=== PATIENT | male | born 1975 | race Caucasian/White ===

== ENCOUNTER 2017-12-24 09:34 | Emergency (ER) | payer OTHER ==
[2017-12-24 10:42] LABS: Protime INR 0.98
[2017-12-24 10:45] LABS: Urine Blood NEGATIVE (NEG); Urine Glucose NEGATIVE (NEG); Urine Protein 1+ (NEG)
[2017-12-24 10:53] LABS: Potassium 3.8 mEq/L (3.6-5.0)
[2017-12-24 10:59] LABS: Albumin 4.6 g/dL (3.2-5.5); Bilirubin Direct 0.1 mg/dL (0-0.2); Magnesium 2.2 mg/dL (1.8-2.5)
[2017-12-24 11:03] LABS: Absolute Lymphocytes (CBC) 1.1 K/uL (0.7-4.9); Absolute Monocytes 0.6 K/uL (0.1-1.3); Absolute Neutrophil 5.3 K/uL (1.8-8.0); Basophils % 0.3 % (0-1.3); Eosinophils % 1.1 % (0-4.4); Hematocrit 45.3 % (39.6-49.0); Lymphocytes % 14.9 % (15.3-44.8); MCH 27.6 pg (27.0-35.0); MCV 83.3 fL (80-100); MPV 8.2 fL (7.6-11.3); Monocytes % 8.6 % (3.3-12.3); RBC Red Blood Cell Count 5.44 M/uL (4.33-5.43)
--- NOTE | 2017-12-24 11:50 | RAD REPORT ---
EXAM DESCRIPTION: [place] Single View12/24/2017 10:22 am CLINICAL HISTORY: Chest pain COMPARISON: none FINDINGS: The lungs appear clear of acute infiltrate. The heart is borderline enlarged IMPRESSION: No acute abnormalities displayed
--- NOTE | 2017-12-24 12:09 | ER ---
Nurse's Notes [facility] Name: Aric Luevano Age: 42 yrs Sex: Male : 1975 Arrival Date: 12/24/2017 Time: 09:38 Bed 13 Private MD: Diagnosis: Paresthesia of skin Presentation: 12/24 09:41 Presenting complaint: Patient states: i have some weakness and numbness and tingling on hj my arms and legs since Tuesday, denies nausea and vomiting; reports headache;. Transition of care: patient was not received from another setting of care. Onset of symptoms was December 21, 2017. Care prior to arrival: None. 09:41 Method Of Arrival: Ambulatory 09:41 Acuity: TRINIDAD 3 hj Triage Assessment: :44 General: Appears in no apparent distress. uncomfortable, Behavior is cooperative, hj appropriate for age, anxious. Pain: Complains of pain in head. Neuro: Reports headache occipital area. Historical: - Allergies: :44 No Known Allergies; hj - Home Meds: :44 testosterone [Active]; hj - PMHx: :44 hypogonadism; hj - PSHx: :44 right meniscus repaired; Vasectomy; hj - Immunization history:: Adult Immunizations up to date, Last tetanus immunization: unknown, Flu vaccine is not up to date. - Social history:: Patient uses alcohol, Patient/guardian denies using street drugs, IV drugs, caffeine, The patient lives with family, Smoking status: Patient/guardian denies using tobacco, never smoked. Screenin:00 Abuse screen: Denies threats or abuse. Denies injuries from another. Nutritional jtb screening: No deficits noted. Tuberculosis screening: No symptoms or risk factors identified. Fall Risk None identified. Assessment: 10:00 General: Appears in no apparent distress. comfortable, Behavior is calm, cooperative, jtb appropriate for age, Pt denies pain but reports a pressure under the left breast that is intermittent. . Pain: Denies pain. Neuro: Level of Consciousness is awake, alert, obeys commands, Oriented to person, place, time, situation, Reports numbness in right hand, left hand, right foot and left foot paresthesias in right hand, left hand, right foot and left foot. Cardiovascular: Patient's skin is warm and dry. Respiratory: Airway is patent Respiratory effort is even, unlabored, Respiratory pattern is regular, symmetrical, Denies shortness of breath. GI: No signs and/or symptoms were reported involving the gastrointestinal system. : No signs and/or symptoms were reported regarding the genitourinary system. EENT: No signs and/or symptoms were reported regarding the EENT system. Derm: Skin is intact, Skin is pink, warm \T\ dry. Musculoskeletal: Reports numbness in right hand, left hand, right foot and left foot. 10:46 Reassessment: Patient and/or family updated on plan of care and expected duration. Pain jtb level reassessed. Patient is alert, oriented x 3, equal unlabored respirations, skin warm/dry/pink. Patient denies pain at this time. 11:45 Reassessment: Patient appears in no apparent distress at this time. Patient and/or jtb family updated on plan of care and expected duration. Pain level reassessed. Patient is alert, oriented x 3, equal unlabored respirations, skin warm/dry/pink. Patient denies pain at this time. Vital Signs: 09:45 BP 147 / 90; Pulse 72; Resp 16; Temp 98.6(O); Pulse Ox 98% on R/A; Weight 104.33 kg; ss Height 5 ft. 9 in. (175.26 cm); Pain 2/10; 10:19 BP 133 / 88; Pulse 69; Resp 16 S; Pulse Ox 97% on R/A; jl7 10:46 BP 133 / 87; Pulse 73; Resp 20 S; Pulse Ox 97% ; Pain 0/10; jtb 11:46 BP 138 / 80; Pulse 72; Resp 16 S; Pulse Ox 98% on R/A; Pain 0/10; jtb 09:45 Body Mass Index 33.96 (104.33 kg, 175.26 cm) ED Course: 09:38 Patient arrived in ED. mr 09:43 Triage completed. hj 09:45 Arm band placed on right wrist. hj 09:47 Abigail Jama RN is Primary Nurse. jl7 09:49 Kodak Pace MD is Attending Physician. ma2 10:00 Patient has correct armband on for positive identification. Placed in gown. Bed in low jtb position. Call light in reach. Side rails up X 1. electronic device monitor on. Pulse ox on. NIBP on. 10:00 Initial lab(s) drawn, by me, sent to lab. Inserted saline lock: 20 gauge in right jtb forearm, using aseptic technique. Blood collected. 10:18 X-ray completed. Portable x-ray completed in exam room. Patient tolerated procedure la2 well. 10:19 Urine collected:. EKG done, by ED staff, reviewed by Kodak Pace MD. [facility] 12:22 No provider procedures requiring assistance completed. IV discontinued, intact, jtb bleeding controlled. Administered Medications: No medications were administered Outcome: 12:08 Discharge ordered by . [email or web address] 12:22 Discharged to home ambulatory. jtb 12:22 Condition: stable 12:22 Discharge instructions given to patient, Instructed on discharge instructions, follow up and referral plans. medication usage, Demonstrated understanding of instructions, follow-up care, medications, Prescriptions given X 1. 12:22 Attestation : I agree with everything documented by Fili Cook, Student Nurse. 7 12:23 Patient left the ED. jtb Signatures: Juanis Stubbs Shelby, RN RN Abdirashid Ellis, RN Juanis Gonzalez [facility] Abigail Jama RN RN 7 Amanda Resendiz [facility] Kodak Pace MD MD vtFili Flores
--- NOTE | 2017-12-24 12:10 | EDPHYS ---
Physician Documentation [facility] Name: Aric Luevano Age: 42 yrs Sex: Male : 1975 Arrival Date: 12/24/2017 Time: 09:38 Bed 13 Private MD: ED Physician Kodak Pace HPI: 12/24 10:12 This 42 yrs old Male presents to ER via Ambulatory with complaints of ma2 Numbness Of Arm, Weakness, Dizziness. 10:12 The complaints affect the right hand. Onset: The symptoms/episode began/occurred ma2 gradually, 4 day(s) ago. Treatment prior to arrival includes: no previous treatment. Associated signs and symptoms: Pertinent negatives: decreased range of motion, deformity, erythema, fever, swelling, tingling, warmth, weakness. Severity of symptoms: At their worst the symptoms were moderate. The patient has experienced similar episodes in the past. Historical: - Allergies: 09:44 No Known Allergies; hj - Home Meds: 09:44 testosterone [Active]; hj - PMHx: :44 hypogonadism; hj - PSHx: 09:44 right meniscus repaired; Vasectomy; hj - Immunization history:: Adult Immunizations up to date, Last tetanus immunization: unknown, Flu vaccine is not up to date. - Social history:: Patient uses alcohol, Patient/guardian denies using street drugs, IV drugs, caffeine, The patient lives with family, Smoking status: Patient/guardian denies using tobacco, never smoked. ROS: 10:12 Constitutional: Negative for fever, chills, and weight loss, Eyes: Negative for injury, ma2 pain, redness, and discharge, ENT: Negative for injury, pain, and discharge, Neck: Negative for injury, pain, and swelling, Cardiovascular: Negative for chest pain, palpitations, and edema, Respiratory: Negative for shortness of breath, cough, wheezing, and pleuritic chest pain, Abdomen/GI: Negative for abdominal pain, nausea, diarrhea, and constipation, Back: Negative for injury and pain, : Negative for injury, bleeding, discharge, and swelling, Skin: Negative for injury, rash, and discoloration, Neuro: Negative for headache, weakness, numbness, tingling, and seizure, Allergy/Immunology: Negative for hives, rash, and allergies, Endocrine: Negative for neck swelling, polydipsia, polyuria, polyphagia, and marked weight changes. 10:12 Psych: Positive for anxiety. Exam: 10:12 Constitutional: This is a well developed, well nourished patient who is awake, alert, ma2 and in no acute distress. Head/Face: Normocephalic, atraumatic. Eyes: Pupils equal round and reactive to light, extra-ocular motions intact. Lids and lashes normal. Conjunctiva and sclera are non-icteric and not injected. Cornea within normal limits. Periorbital areas with no swelling, redness, or edema. Chest/axilla: Normal chest wall appearance and motion. Nontender with no deformity. No lesions are appreciated. Cardiovascular: Regular rate and rhythm with a normal S1 and S2. No gallops, murmurs, or rubs. Normal PMI, no JVD. No pulse deficits. Respiratory: Lungs have equal breath sounds bilaterally, clear to auscultation and percussion. No rales, rhonchi or wheezes noted. No increased work of breathing, no retractions or nasal flaring. Abdomen/GI: Soft, non-tender, with normal bowel sounds. No distension or tympany. No guarding or rebound. No evidence of tenderness throughout. MS/ Extremity: Pulses equal, no cyanosis. Neurovascular intact. Full, normal range of motion. Neuro: Awake and alert, GCS 15, oriented to person, place, time, and situation. Cranial nerves II-XII grossly intact. Motor strength 5/5 in all extremities. Sensory grossly intact. Cerebellar exam normal. Normal gait. Psych: Awake, alert, with orientation to person, place and time. Behavior, mood, and affect are within normal limits. Vital Signs: 09:45 BP 147 / 90; Pulse 72; Resp 16; Temp 98.6(O); Pulse Ox 98% on R/A; Weight 104.33 kg; ss Height 5 ft. 9 in. (175.26 cm); Pain 2/10; 10:19 BP 133 / 88; Pulse 69; Resp 16 S; Pulse Ox 97% on R/A; jl7 10:46 BP 133 / 87; Pulse 73; Resp 20 S; Pulse Ox 97% ; Pain 0/10; jtb 11:46 BP 138 / 80; Pulse 72; Resp 16 S; Pulse Ox 98% on R/A; Pain 0/10; jtb 09:45 Body Mass Index 33.96 (104.33 kg, 175.26 cm) ss MDM: 09:49 Patient medically screened. [facility] 10:12 Differential diagnosis: electrolyte abnormality, CTS, hyperventilation, vs other [facility] condition unlikely ACS. 12:05 Data reviewed: vital signs, nurses notes, EMS record. Test interpretation: by ED [facility] physician or midlevel provider: ECG, plain radiologic studies. Counseling: I had a detailed discussion with the patient and/or guardian regarding: the historical points, exam findings, and any diagnostic results supporting the discharge/admit diagnosis, the presence of at least one elevated blood pressure reading (>120/80) during this emergency department visit, lab results, radiology results, the need for outpatient follow up. 12/24 09:58 Order name: Basic Metabolic Panel [facility] 12/24 09:58 Order name: BNP [facility] 12/24 09:58 Order name: CBC with Diff [facility] 12/24 09:58 Order name: LFT's [facility] 12/24 09:58 Order name: Magnesium [facility] 12/24 09:58 Order name: PT-INR [facility] 12/24 09:58 Order name: Ptt, Activated [facility] 12/24 09:58 Order name: Troponin (emerg Dept Use Only) [facility] 12/24 10:15 Order name: TSH [facility] 12/24 10:38 Order name: Urine Dipstick--Ancillary (enter results) [place] 12/24 10:45 Order name: Urine Dipstick-Ancillary; Complete Time: 11:55 EDMS 12/24 10:53 Order name: Basic Metabolic Panel; Complete Time: 11:55 EDNV 12/24 10:59 Order name: Liver (Hepatic) Function; Complete Time: 11:55 EDMS 12/24 10:59 Order name: Magnesium; Complete Time: 11:55 EDNV 12/24 09:58 Order name: XRAY Chest (1 view) [facility] 12/24 09:58 Order name: EKG; Complete Time: 09:59 [facility] 12/24 09:58 Order name: Cardiac monitoring; Complete Time: 10:18 [facility] 12/24 09:58 Order name: EKG - Nurse/Tech; Complete Time: 10:18 [facility] 12/24 09:58 Order name: IV Saline Lock; Complete Time: 10:18 [facility] 12/24 09:58 Order name: Labs collected and sent; Complete Time: 10:18 ma2 12/24 09:58 Order name: O2 Per Protocol; Complete Time: 10:18 tx2 12/24 09:58 Order name: O2 Sat Monitoring; Complete Time: 10:18 ma2 12/24 09:58 Order name: Urine Dipstick-Ancillary (obtain specimen); Complete Time: 10:28 ma2 12/24 10:59 Order name: Troponin (Emerg Dept Use Only); Complete Time: 11:55 EDMS 12/24 11:00 Order name: Protime (+INR); Complete Time: 11:55 EDMS 12/24 11:00 Order name: PTT, Activated Partial Thromb; Complete Time: 11:55 EDMS 12/24 11:04 Order name: BNP B-Type Natriuretic Peptide; Complete Time: 11:55 EDMS 12/24 11:04 Order name: CBC with Automated Diff; Complete Time: 11:55 EDMS 12/24 11:32 Order name: Thyroid Stimulating Hormone; Complete Time: 11:55 EDMS 12/24 11:50 Order name: RAD; Complete Time: 11:55 EDMS Administered Medications: No medications were administered Disposition: 12/24/17 12:08 Discharged to Home. Impression: Paresthesia of skin. - Condition is Stable. - Discharge Instructions: Paresthesia, [id number]. - Prescriptions for Valium 10 mg Oral Tablet - take 1 tablet by ORAL route every 8 hours As needed; 20 tablet. - Medication Reconciliation Form, Thank You Letter, Antibiotic Education, Prescription Opioid Use form. - Follow up: Private Physician; Reason: Continuance of care. - Problem is new. - Symptoms are unchanged. Signatures: Dispatcher [employer] [facility] Abdirashid Ellis, RN RN Kodak Santana MD MD ma2 Fili Cook
--- NOTE | 2017-12-25 06:37 | EKG ---
Test Date: 2017-12-24 Test Time: 09:58:38 [employer] Sleeve Worker: NAKIA MEASUREMENT RESULTS: Intervals: Rate: 69 LA: 182 QRSD: 100 QT: 382 QTc: 409 [place]: P: 43 LA: 182 QRS: 39 T: -15 INTERPRETIVE STATEMENTS: Normal sinus rhythm Cannot rule out Anterior infarct, age undetermined T wave abnormality, consider inferior ischemia Abnormal ECG No previous ECG available for comparison Electronically Signed On 12-25-17 06:35:16 CDT by Mars Rai
== END 2017-12-24 12:23 | disposition home or self-care (01) ==
LOC: ER 09:34
DX: R20.2 Paresthesia of skin (principal)
CPT/HCPCS: 36415; 71045; 80048; 80076; 81003; 83735; 83880; 84443; 84484; 85025; 85610; 85730; 93005; 99284

== ENCOUNTER 2018-07-05 11:24 | Emergency (ER) | payer OTHER ==
[2018-07-05] MEDS ORDERED: NA CHLORIDE 0.9% 2,000 ML ONE (12:16)
[2018-07-05 12:49] LABS: Urine Blood NEGATIVE (NEG); Urine Glucose NEGATIVE (NEG); Urine Protein NEGATIVE (NEG)
--- NOTE | 2018-07-05 14:35 | ER ---
Nurse's Notes [facility] Name: Aric Luevano Age: 43 yrs Sex: Male : 1975 Arrival Date: 07/05/2018 Time: 11:25 Bed 19 Private MD: Diagnosis: Rhabdomyolysis Presentation: 07/05 11:27 Presenting complaint: Patient states: i started a new work out program Tuesday and i tw2 might have over did it because i have been feeling bad so i went to urgent care and they did labs then told me my CK levels were elevated and i dont know if i have rhabdo or not. Transition of care: patient was not received from another setting of care. Onset of symptoms was July 05, 2018. Risk Assessment: Do you want to hurt yourself or someone else? Patient reports no desire to harm self or others. Initial Sepsis Screen: Does the patient meet any 2 criteria? No. Patient's initial sepsis screen is negative. Does the patient have a suspected source of infection? No. Patient's initial sepsis screen is negative. Care prior to arrival: None. 11:27 Method Of Arrival: Ambulatory tw2 11:27 Acuity: TRINIDAD 3 tw2 Historical: - Allergies: 11:29 No Known Allergies; tw2 - Home Meds: 11:29 testosterone [Active]; hormone replacement therapy [Active]; tw2 - PMHx: 11:29 hypogonadism; tw2 - PSHx: 11:29 right meniscus repaired; Vasectomy; tw2 - Immunization history:: Adult Immunizations up to date. - Social history:: Smoking status: Patient/guardian denies using tobacco. - Ebola Screening: : Patient denies travel to an Ebola-affected area in the 21 days before illness onset. Screenin:57 Abuse screen: Denies threats or abuse. Denies injuries from another. Nutritional aj1 screening: No deficits noted. Tuberculosis screening: No symptoms or risk factors identified. Assessment: 11:57 General: Appears in no apparent distress. comfortable, Behavior is calm, cooperative, aj1 appropriate for age. Pain: Complains of pain in right arm, left arm, right leg and left leg Pain does not radiate. Pain currently is 0 out of 10 on a pain scale. at worst was 6 out of 10 on a pain scale. Quality of pain is described as aching, Is intermittent, Alleviated by rest, Aggravated by exercise, increased activity. Neuro: Level of Consciousness is awake, alert, obeys commands, Reports generalized fatigue. Cardiovascular: Denies chest pain, shortness of breath, Patient's skin is warm and dry. Respiratory: Airway is patent Respiratory effort is even, unlabored, Respiratory pattern is regular, symmetrical. GI: Abdomen is flat, non-distended, Abd is soft and non tender X 4 quads. : No signs and/or symptoms were reported regarding the genitourinary system. Reports urine is normal color. EENT: No signs and/or symptoms were reported regarding the EENT system. Derm: No signs and/or symptoms reported regarding the dermatologic system. Skin is pink, warm \T\ dry. normal. Musculoskeletal: No signs and/or symptoms reported regarding the musculoskeletal system. Circulation, motion, and sensation intact. 12:51 Reassessment: Patient appears in no apparent distress at this time. No changes from aj1 previously documented assessment. Patient and/or family updated on plan of care and expected duration. Pain level reassessed. Patient is alert, oriented x 3, equal unlabored respirations, skin warm/dry/pink. 13:51 Reassessment: Patient appears in no apparent distress at this time. No changes from aj1 previously documented assessment. Patient and/or family updated on plan of care and expected duration. Pain level reassessed. Patient is alert, oriented x 3, equal unlabored respirations, skin warm/dry/pink. Vital Signs: 11:29 BP 132 / 79; Pulse 73; Resp 17; Temp 98.2(O); Pulse Ox 96% on R/A; Pain 0/10; tw2 12:51 BP 144 / 85; Pulse 62; Resp 18; Pulse Ox 100% on R/A; aj1 13:50 BP 128 / 75; Pulse 65; Resp 18; Pulse Ox 99% ; aj1 ED Course: 11:25 Patient arrived in ED. rg4 11:28 Triage completed. tw2 11:28 Arm band placed on. tw2 11:48 Rhett Anderson NP is PHCP. pm1 11:48 Fabián Danielle MD is Attending Physician. pm1 11:53 Thania Núñez, JF is Primary Nurse. aj1 11:57 Patient has correct armband on for positive identification. Bed in low position. Call aj1 light in reach. Side rails up X 1. 11:57 No provider procedures requiring assistance completed. aj1 12:07 Inserted saline lock: 20 gauge in left antecubital area, using aseptic technique. Blood mw2 collected. Administered Medications: 12:15 Drug: NS 0.9% 1000 ml Route: IV; Rate: 1000 ml; Site: right antecubital; aj1 12:16 Drug: NS 0.9% 1000 ml Route: IV; Rate: 1000 ml; Site: right antecubital; aj1 Outcome: 14:35 Discharge ordered by MD. pm1 14:50 Patient left the ED. aj1 Signatures: Thania Núñez RN RN aj1 Rhett Anderson NP CAMPAIGN SPECIALIST pm1 Charlette Mendoza RN RN tw2 Audelia Zimmer 4 Tessa Cruz mw2 Corrections: (The following items were deleted from the chart) 11:30 11:29 Pulse 73bpm; Resp 17bpm; Pulse Ox 96% RA; Temp 98.2F Oral; Pain 0/10; tw2 tw2
--- NOTE | 2018-07-05 14:35 | EDPHYS ---
Physician Documentation [facility] Name: Aric Luevano Age: 43 yrs Sex: Male : 1975 Arrival Date: 07/05/2018 Time: 11:25 Bed 19 Private MD: ED Physician Fabián Danielle HPI: 07/05 12:30 This 43 yrs old Male presents to ER via Ambulatory with complaints of pm1 Abnormal Lab Results. 12:30 Associated signs and symptoms: Pertinent negatives: abdominal pain, chest pain, cough, pm1 diarrhea, fever, shortness of breath, vomiting, nausea. Patient with onset of new exercise routine on Tuesday. Patient ran 60 minutes and he normally just weight lifts. Patient with generalized muscle aches. Patient reports feeling better today compared to the last two days. he went to urgent care today and had labs drawn here at [facility]. Patient instructed to report to ER for evaluation and treatment due to elevated CPK. Historical: - Allergies: 11:29 No Known Allergies; tw2 - Home Meds: 11:29 testosterone [Active]; hormone replacement therapy [Active]; tw2 - PMHx: 11:29 hypogonadism; tw2 - PSHx: 11:29 right meniscus repaired; Vasectomy; tw2 - Immunization history:: Adult Immunizations up to date. - Social history:: Smoking status: Patient/guardian denies using tobacco. - Ebola Screening: : Patient denies travel to an Ebola-affected area in the 21 days before illness onset. ROS: 12:30 Constitutional: Negative for fever, chills, and weight loss, Eyes: Negative for injury, pm1 pain, redness, and discharge, ENT: Negative for injury, pain, and discharge, Neck: Negative for injury, pain, and swelling, Cardiovascular: Negative for chest pain, palpitations, and edema, Respiratory: Negative for shortness of breath, cough, wheezing, and pleuritic chest pain, Abdomen/GI: Negative for abdominal pain, nausea, vomiting, diarrhea, and constipation, Back: Negative for injury and pain. 12:30 Skin: Negative for injury, rash, and discoloration, Neuro: Negative for headache, weakness, numbness, tingling, and seizure. 12:30 MS/extremity: Positive for generalized muscle aches, Negative for decreased range of motion, deformity. Exam: 12:30 Constitutional: This is a well developed, well nourished patient who is awake, alert, pm1 and in no acute distress. Head/Face: Normocephalic, atraumatic. Eyes: Pupils equal round and reactive to light, extra-ocular motions intact. Lids and lashes normal. Conjunctiva and sclera are non-icteric and not injected. Cornea within normal limits. Periorbital areas with no swelling, redness, or edema. ENT: Nares patent. No nasal discharge, no septal abnormalities noted. Tympanic membranes are normal and external auditory canals are clear. Oropharynx with no redness, swelling, or masses, exudates, or evidence of obstruction, uvula midline. Mucous membranes moist. Neck: Trachea midline, no thyromegaly or masses palpated, and no cervical lymphadenopathy. Supple, full range of motion without nuchal rigidity, or vertebral point tenderness. No Meningismus. Chest/axilla: Normal chest wall appearance and motion. Nontender with no deformity. No lesions are appreciated. Cardiovascular: Regular rate and rhythm with a normal S1 and S2. No gallops, murmurs, or rubs. No pulse deficits. Respiratory: Lungs have equal breath sounds bilaterally, clear to auscultation and percussion. No rales, rhonchi or wheezes noted. No increased work of breathing, no retractions or nasal flaring. Abdomen/GI: Soft, non-tender, with normal bowel sounds. No distension or tympany. No guarding or rebound. No evidence of tenderness throughout. Back: No spinal tenderness. No costovertebral tenderness. Full range of motion. Skin: Warm, dry with normal turgor. Normal color with no rashes, no lesions, and no evidence of cellulitis. MS/ Extremity: Pulses equal, no cyanosis. Neurovascular intact. Full, normal range of motion. 12:30 Neuro: Orientation: is normal, Motor: is normal, moves all fours. Vital Signs: 11:29 BP 132 / 79; Pulse 73; Resp 17; Temp 98.2(O); Pulse Ox 96% on R/A; Pain 0/10; tw2 12:51 BP 144 / 85; Pulse 62; Resp 18; Pulse Ox 100% on R/A; aj1 13:50 BP 128 / 75; Pulse 65; Resp 18; Pulse Ox 99% ; aj1 MDM: 11:48 Patient medically screened. pm1 14:25 Data reviewed: vital signs. Data interpreted: Pulse oximetry: on room air is 100 %. pm1 Interpretation: normal. 14:33 ED course: Patient feeling better than on arrival today and he felt better today than pm1 the past two days. Patient without any body aches after infusion of NS. Patient offered admission but he feels better and instructed to return to the ER if he has any return of symptoms or any concerns. 14:34 Counseling: I had a detailed discussion with the patient and/or guardian regarding: the pm1 historical points, exam findings, and any diagnostic results supporting the discharge/admit diagnosis, lab results, the need for outpatient follow up, to return to the emergency department if symptoms worsen or persist or if there are any questions or concerns that arise at home. 07/05 12:20 Order name: Urine Dipstick--Ancillary (enter results); Complete Time: 12:52 mw2 07/05 12:01 Order name: IV Saline Lock; Complete Time: 12:15 pm1 07/05 12:11 Order name: Urine Dipstick-Ancillary (obtain specimen); Complete Time: 12:15 pm1 Administered Medications: 12:15 Drug: NS 0.9% 1000 ml Route: IV; Rate: 1000 ml; Site: right antecubital; aj1 12:16 Drug: NS 0.9% 1000 ml Route: IV; Rate: 1000 ml; Site: right antecubital; aj1 Disposition: 17:35 Co-signature as Attending Physician, Fabián Danielle MD. rn Disposition: 07/05/18 14:35 Discharged to Home. Impression: Rhabdomyolysis. - Condition is Stable. - Discharge Instructions: Rhabdomyolysis, Rehydration, Adult. - Medication Reconciliation Form, Thank You Letter form. - Follow up: Emergency Department; When: As needed; Reason: Worsening of condition. Follow up: Private Physician; When: 2 - 3 days; Reason: Recheck today's complaints, Continuance of care, Re-evaluation by your physician. - Problem is new. - Symptoms have improved. Signatures: Dispatcher [employer] EDMS Thania Núñez RN RN aj1 Fabián Danielle MD MD rn Marinas, Patrick, HORSE RACING MANAGER HORSE RACING MANAGER pm1 Charlette Mendoza RN RN tw2 Corrections: (The following items were deleted from the chart) 14:50 14:35 07/05/2018 14:35 Discharged to Home. Impression: Rhabdomyolysis. Condition is aj1 Stable. Forms are Medication Reconciliation Form, Thank You Letter, Antibiotic Education, Prescription Opioid Use. Follow up: Emergency Department; When: As needed; Reason: Worsening of condition. Follow up: Private Physician; When: 2 - 3 days; Reason: Recheck today's complaints, Continuance of care, Re-evaluation by your physician. Problem is new. Symptoms have improved. pm1
== END 2018-07-05 14:50 | disposition home or self-care (01) ==
LOC: ER 11:24
DX: M62.82 Rhabdomyolysis (principal)
CPT/HCPCS: 81003; 99283; J7030

== ENCOUNTER 2024-06-26 07:00 | Day surgery (SDC) | payer BC ==
[2024-06-22 12:28] LABS: Absolute Eosinophils 0.1 K/uL (0-0.5); Absolute Lymphocytes (CBC) 0.8 K/uL (0.7-4.9); Absolute Monocytes 0.5 K/uL (0.1-1.3); Absolute Neutrophil 3.7 K/uL (1.8-8.0); Basophils % 0.5 % (0-1.3); Hematocrit 53.2 % (39.6-49.0); Hemoglobin 17.6 g/dL (13.6-17.9); Lymphocytes % 16.6 % (15.3-44.8); MCH 30.8 pg (27.0-35.0); MCV 93.2 fL (80-100); MPV 7.6 fL (7.6-11.3); Monocytes % 9.8 % (3.3-12.3); Neutrophils % 72.1 % (41.7-73.7); Platelets 278 thou/uL (152-406); RBC Red Blood Cell Count 5.71 M/uL (4.33-5.43); Red Cell Distribution Width 14.2 % (12.1-15.2)
[2024-06-22 12:32] LABS: PT Prothrombin Time 10.5 SECONDS (9.4-12.5); PTT, Activated Partial Thromb 35.4 SECONDS (24.3-36.9); Protime INR 0.94
--- NOTE | 2024-06-22 17:02 | RAD REPORT ---
EXAM: Chest 2 views HISTORY: Preop for heart catheter, hypertension COMPARISON: 12/24/2017 FINDINGS: LUNGS/PLEURA: The lungs are clear. No pleural effusions or pneumothorax. No pulmonary edema. MEDIASTINUM: The mediastinal silhouette is within normal limits. CARDIAC: The cardiac silhouette is within normal limits. UPPER ABDOMEN: No significant abnormality. BONES: No acute fracture. LINES/TUBES/OTHER: N/A IMPRESSION: No evidence of acute cardiopulmonary disease
--- NOTE | 2024-06-25 12:59 | EKG ---
Test Date: 2024-06-22 Test Time: 12:02:43 Station Supervisor: LF MEASUREMENT RESULTS: Intervals: Rate: 53 MO: 204 QRSD: 104 QT: 426 QTc: 399 [place]: P: 56 MO: 204 QRS: 94 T: -25 INTERPRETIVE STATEMENTS: Sinus bradycardia Possible Left atrial enlargement Rightward axis RSR' or QR pattern in V1 suggests right ventricular conduction delay T wave abnormality, consider inferior ischemia Abnormal ECG Compared to ECG 12/24/2017 09:58:38 Right-axis deviation now present RSR' in V1 or V2 now present Sinus rhythm no longer present Myocardial infarct finding no longer present T-wave abnormality still present Possible ischemia still present Electronically Signed On 06-25-24 12:50:10 CDT by Low Ritchie
[2024-06-26] MEDS ORDERED: NA CHLORIDE 0.9% 500 ML ONE (07:18)
[2024-06-26 07:31] LABS: Anion Gap 6.9 mEq/L (5.0-15.0); Potassium 3.9 mEq/L (3.5-5.1)
[2024-06-26] MEDS ORDERED: HEPARIN 10,000 UNIT/10 ML VIAL IV ONE (07:32)
[2024-06-26] MEDS ORDERED: LIDOCAINE 1% 20 ML MDV ONE (07:32)
[2024-06-26] MEDS ORDERED: HEPA 1000U/500MLS 2,000 UNIT/1,000 ML BAG IV ONE (07:32)
[2024-06-26] MEDS ORDERED: FENTANYL CITR 100 MCG/2 ML ONE (07:33)
[2024-06-26] MEDS ORDERED: ATROPINE SULF 1 MG/10 ML SYR IV ONE (07:33)
[2024-06-26] MEDS ORDERED: MIDAZOLAM HCL 2 MG/2 ML INJ ONE (07:33)
[2024-06-26] MEDS ORDERED: HEPARIN 5000 UNIT/ML 1 ML VIAL ONE (07:34)
[2024-06-26] MEDS ORDERED: TICAGRELOR 90 MG TABLET PO ONE (07:34)
[2024-06-26] MEDS ORDERED: ASPIRIN 325 MG TAB ONE (07:34)
[2024-06-26] MEDS ORDERED: CLOPIDOGREL 75 MG TABLET ONE (07:34)
[2024-06-26 08:29] VITALS: TEMP 97.9
[2024-06-26 10:21] VITALS: BP 139/75; O2SAT 98
--- NOTE | 2024-06-26 10:24 | OP ---
Date of Procedure: 06/26/2024 Surgeon: Glenroy Rodriguez Procedures Performed: 1.Left heart catheterization. 2.Selective coronary angiogram. Indications For Procedure: Shortness of breath, abnormal stress test. Complications: None. Estimated Blood Loss: Less than 50 cc. Access: Right radial, closed by TR band. Sedation Time: 15 minutes with 1 of Versed and 50 of fentanyl. Description Of Procedure: After risks, benefits, and alternatives were explained to the patient, the patient agreed to proceed with the procedure and signed informed consent. The patient was brought b [facility] to the laborer aquatic life, prepped and draped in sterile fashion. Time-out was performed. Sedation was ad ministered. Next, an ultrasound-guided right radial access was obtained. [place] 4 catheter was advan keisha over the J-wire to the LV cavity. LVEDP was obtained. Pullback did not show any gradient. Same catheter was used for selective angiogram of the left and right coronary systems. At the end of pro cedure, catheter was removed. The J-wire sheath was removed. TR band was applied. Hemostasis achie sheron and the patient was moved back to recovery in stable condition. Findings: 1.Left main, normal. 2.LAD, normal. 3.Left circ, normal. 4.RCA normal. 5.LVEDP 11 mmHg. Assessment And Plan: 1.Normal coronaries. 2.Normal filling pressure. Plan will be to continue medical management. SHON Voice ID: [id number] Report ID: [id number]
== END 2024-06-26 10:20 | disposition home or self-care (01) ==
LOC: CCL 07:00
PROVIDERS: ATTEND Internal Medicine Interventional Cardiology
DX: R94.39 Abnormal result of other cardiovascular function study (principal); R06.02 Shortness of breath; I10 Essential (primary) hypertension; E78.5 Hyperlipidemia, unspecified; Z87.891 Personal history of nicotine dependence; Z79.899 Other long term (current) drug therapy
CPT/HCPCS: 93005; 85025; 80048; 36415 ×2; 85610; 85730; 83880; 71046; 93458; 76937; C1893; Q9966; J1644; J2001; J2250; J3010; J7040; 99152; J0461

== ENCOUNTER 2024-06-26 21:16 | Emergency (ER) | payer BC ==
--- OUTSIDE RECORDS SUMMARY | 2024-06-26 21:20 | XMS REPORT | Continuity of Care Document ---
Author Name Unknown Address [address] [facility] [address] [place] [address] [facility] Address [address] [facility] [address] [place] [address] Care Team Providers Care Cook Pressure Name Role Phone SURYA HERRERA Primary Care Physician Getachew Babin Attending Clinician Unavailable Piazza_D_HOU_DO Attending Clinician Unavailable Khang Martins MD Attending Clinician Nishant Cotto Attending Clinician [phone] NISHANT HIGGINS Attending Clinician UnavailRYAN Rivera Attending Clinician Unavailable Aidan Phillips Attending Clinician Unavailable KNOW, DOES_NOT Admitting Clinician Unavailable Bobazjeremy_D_HOU_DO Admitting Clinician Unavailable Getachew Babin Admitting Clinician Unavailable Payers Payer Name Policy Type Policy Number Effective Date Expirati on Date Source [place] [id number] 2022 00:00:00 Problems Condition Name Condition Details Condition Category Status Onset Date Resolution Date Last Treatment Date Treating Clinician Comments Source Near syncope Near Syncope Problem Active 10-11 00:00: 00 [facility] Chronic insomnia Chronic Insomnia Problem Active 10-11 00:00: 00 [facility] Hypogonadi sm Hypogonadi sm Problem Active 10-11 00:00: 00 [facility] Elbow pain, left Elbow pain, left Disease Active 02-25 00:00: 00 [facility] Golfer's elbow, left Golfer's elbow, left Disease Active 02-25 00:00: 00 Last Assessmen t & Plan: Formattin g of this note might be different from the original. States that he has now behind his optimal health plan and after continued discomfor t given him the options for possible PRP injection we will first get an MR arthrogra m of the left elbow for further diagnosis and evaluatio n to help determine plan of care. Patient verbalize silvino alston. Stable. Has been using a universal wrist brace on the left wrist which really has not been helping him too much either. [facility] Panic attacks Panic attacks Disease Active 06-26 00:00: 00 [facility] Chest pain Chest Pain Problem Active 04-05 00:00: 00 [facility] Adult health examinatio n Adult Health Examinatio n Problem Active 04-05 00:00: 00 [facility] Gastroesop hageal reflux disease Gastroesop hageal Reflux Disease Problem Active 04-05 00:00: 00 [facility] Enthesopat hy of knee Enthesopat hy of Knee Problem Active 04-05 00:00: 00 [facility] Allergies, Adverse Reactions, Alerts Allergy Name Allergy Type Status Severity Reaction(s) Onset Date Inactive Date Treating Clinician Comments Source No Known Allergie s DA Active U 06-18 00:00: 00 [facility] Social History Social Habit Start Date Stop Date Quantity Comments Source Exposure to SARS-CoV-2 (event) 2022-03-29 00:00:00 2022-04-08 09:01:00 Not sure [facility] Alcohol intake 2022-03-18 00:00:00 2022-03-18 00:00:00 4.76 /d [facility] Cigarettes smoked current (pack per day) - Reported 2022-02-25 00:00:00 2022-02-25 00:00:00 [facility] Cigarette pack-years 2022-02-25 00:00:00 2022-02-25 00:00:00 [facility] Tobacco use and exposure 2022-02-25 00:00:00 2022-02-25 00:00:00 Former smokeless tobacco user [facility] History of tobacco use 1994 00:00:00 2022-01-08 00:00:00 Snuff User [facility] Sex Assigned At 1975 00:00:00 1975 00:00:00 [facility] Smoking Status Start Date Stop Date Source Former Smoker [facility] Never smoker [facility] Medications Ordered Medication Name Filled Medication Name Start Date Stop Date Current Medication? Ordering Clinician Indication Dosage Frequency Signature (SIG) Comments Components Source No known medications 04-08 09:16: 37 No No known medication s [facility] hydrocortis one 25 mg suppository 03-18 00:00: 00 04-02 04:59 :00 No [id number] 25mg Insert 1 Suppositor y into rectum 2 (two) times daily for 14 days. [facility] Diclofenac Sodium (Pennsaid) 2 % solution 02-25 00:00: 00 03-28 04:59 :00 No [id number] 20mg Q.5D Apply 20 mg topically 2 (two) times a day. [facility] BD INTEGRA SYRINGE 3 mL 21 gauge x 1 1/2" Syrg 05-23 00:00: 00 03-18 00:00 :00 No INJ IM Q 3 TO 4 DAYS [facility] CIALIS 20 mg tablet 13 00:00: 00 03-18 00:00 :00 [facility] clonazePAM (KLONOPIN) 0.5 mg tablet 2011-10 00:00: 00 03-18 00:00 :00 No [id number] .5mg Take 1 Tab by mouth as needed (anxiety). [facility] paroxetine (PAXIL) 40 mg tablet 06-26 00:00: 00 03-18 00:00 :00 No [id number] 40mg Take 1 Tab by mouth daily. [facility] hydrOXYzine (VISTARIL) 50 mg capsule 06-26 00:00: 00 03-18 00:00 :00 No [id number] 50mg Take 1 Cap by mouth 3 (three) times daily as needed for Itching. [facility] anastrozole 1 mg tablet TAKE 1 TABLET BY MOUTH ONE TIME PER WEEK anastrozole 1 mg tablet TAKE 1 TABLET BY MOUTH ONE TIME PER WEEK No anastrozol e 1 mg tablet TAKE 1 TABLET BY MOUTH ONE TIME PER WEEK [facility] fluocinonid e 0.05 % topical solution APPLY TWICE A DAY TO AREAS OF PSORIASIS ON SCALP FOR 2 WEEKS/MONTH . fluocinonid e 0.05 % topical solution APPLY TWICE A DAY TO AREAS OF PSORIASIS ON SCALP FOR 2 WEEKS/MONTH . No fluocinoni de 0.05 % topical solution APPLY TWICE A DAY TO AREAS OF PSORIASIS ON SCALP FOR 2 WEEKS/DIMITRY H. [facility] lisinopril 10 mg tablet TAKE 1 TABLET BY MOUTH EVERY DAY lisinopril 10 mg tablet TAKE 1 TABLET BY MOUTH EVERY DAY No lisinopril 10 mg tablet TAKE 1 TABLET BY MOUTH EVERY DAY [facility] tadalafil 10 mg tablet TAKE 1 TABLET BY MOUTH NEEDED FOR ERECTILE DYSFUNCTION tadalafil 10 mg tablet TAKE 1 TABLET BY MOUTH NEEDED FOR ERECTILE DYSFUNCTION No tadalafil 10 mg tablet TAKE 1 TABLET BY MOUTH NEEDED FOR ERECTILE DYSFUNCTIO N [facility] temazepam 15 mg capsule 1 capsule at bedtime for sleep temazepam 15 mg capsule 1 capsule at bedtime for sleep No temazepam 15 mg capsule 1 capsule at bedtime for sleep [facility] testosteron e cypionate 200 mg/mL intramuscul ar oil ADMINISTER 1 ML IN THE MUSCLE EVERY 7 DAYS testosteron e cypionate 200 mg/mL intramuscul ar oil ADMINISTER 1 ML IN THE MUSCLE EVERY 7 DAYS No testostero ne cypionate 200 mg/mL intramuscu lar oil ADMINISTER 1 ML IN THE MUSCLE EVERY 7 DAYS [facility] trazodone 100 mg tablet TAKE 1 TABLET BY MOUTH EVERYDAY AT BEDTIME trazodone 100 mg tablet TAKE 1 TABLET BY MOUTH EVERYDAY AT BEDTIME No trazodone 100 mg tablet TAKE 1 TABLET BY MOUTH EVERYDAY AT BEDTIME [facility] e Vital Signs Vital Name Observation Time Observation Value Comments S michel BP Diastolic 2023-10-11 00:00:00 82 mm[Hg] [facility] BP Systolic 2023-10-11 00:00:00 138 mm[Hg] Reena quigley [facility] BMI (Body Mass Index) 2023-10-11 00:00:00 32.5 kg/m2 [facility] Body Weight 2023-10-11 00:00:00 220 [lb_av] [facility] Height 2023-10-11 00:00:00 69 [in_i] [facility] Systolic blood pressure 2022-03-18 13:09:00 125 mm[Hg] [facility] Diastolic blood pressure 2022-03-18 13:09:00 78 mm[Hg] [facility] Heart rate 2022-03-18 13:09:00 43 /min [facility] Body temperature 2022-03-18 13:09:00 36.28 Hermila [facility] Body height 2022-03-18 13:09:00 175.3 cm [facility] Body weight 2022-03-18 13:09:00 103.556 kg [facility] BMI 2022-03-18 13:09:00 33.71 kg/m2 [facility] Oxygen saturation in Arterial blood by Pulse oximetry 2022-03-18 13:09:00 97 /min [facility] Plan of Care Planned Activity Planned Date Details Comments Source Diagnostic Test Pending 2023-10-11 00:00:00 CBC w/ auto diff [code = CBC w/ auto diff] [facility] Diagnostic Test Pending 2023-10-11 00:00:00 CMP, serum or plasma [code = CMP, serum or plasma] [facility] Diagnostic Test Pending 2023-10-11 00:00:00 TSH, ultra-sensitive, serum [code = TSH, ultra-sensitive, serum] [facility] Encounters Start Date/Time End Date/Time Encounter Type Admission Type Attending Clinicians Care Facility Care Department Encounter ID Source 2020-02-22 09:30:00 Inpatient Getachew Daugherty [facility] [id number] 26 [facility] 2023-10-28 00:00:00 2023-10-28 00:00:00 Outpatient Piazza_D_HO U_DO VFP VFP [id number] [facility] 2023-10-27 00:00:00 2023-10-27 00:00:00 Outpatient Piazza_D_HO U_DO VFP VFP [id number] [facility] 2023-10-11 00:00:00 2023-10-11 00:00:00 Outpatient Piazza_D_HO U_DO VFP VFP [id number] [facility] 2023-10-11 00:00:00 2023-10-11 00:00:00 Surya Castro, DO: [address], [place] [address] , Ph. VFP [place] [facility] [place] - VM_BECCAU_John Keating [id number] [facility] 2023-10-08 00:00:00 2023-10-08 00:00:00 Outpatient Piazza_D_HO U_DO VFP VFP [id number] [facility] 2023-10-07 00:00:00 2023-10-07 00:00:00 Outpatient Piazza_D_HO U_DO VFP VFP [id number] [facility] 2023-10-07 00:00:00 2023-10-07 00:00:00 Outpatient Piazza_D_HO U_DO VFP VFP [id number] [facility] 2022-04-08 09:30:00 2022-04-08 09:45:00 Office Visit Khang Martins [facility] 1 .[id number] [facility] 2022-03-18 08:00:00 2022-03-18 08:30:00 Office Visit Nishant Higgins [facility] 1..840.114 [id number] [facility] 2022-03-18 08:00:00 2022-03-18 08:00:00 Outpatient NISHANT HEARD [facility] [id number] [facility] 2022-02-25 09:45:00 2022-02-25 10:47:03 Office Visit Khang Martins [facility] 1 1..840.114 [id number] [facility] 2021-09-29 16:00:00 2021-09-29 16:00:00 Outpatient RYAN MUSTAFA [facility] [id number] [facility] 2020-10-29 11:00:00 2020-10-29 11:00:00 [facility] [id number] 23 [facility] 2020-02-19 10:31:00 2020-02-19 10:31:00 [facility] [id number] 50 [facility] Results Test Description Test Time Test Comments Results Resul t Comments Source SURGICAL SPECIMENS 2020-02-25 12:17:00 --------RUN DATE: 02/25/20 [facility] PAGE 1 RUN TIME: 1217 Specimen Inquiry RUN USER: INTERFACE --------PATIENT: WENDY LUEVANO LOC: MISTY #: [id number] AGE/SX: 44/M ROOM: RE02/22/20REG DR: Getachew Babin DPMagdaleen : 79 BED: DIS: STATUS: [facility]P [facility] TLOC: -------- SPEC #: [id number] RECD: 02/22/20 STATUS: [facility] #: [id number] EAN: 02/22/20- [facility] DR: Getachew Babin DPM ENTERED: 02/22/20 SP TYPE: SURG SPEC OTHR DR: Self Referred ORDERED: LEVEL 3, REQUEST COMMENTS: RIGHT HEEL INCLUSION CYST COPIES TO: Self Referred Getachew Babin DPM [address] [facility] [place] [address] ICD CODES: 939.9 - PROCEDURES: LEVEL 3 (02/25/20-1132) REQUEST (02/22/20) FINAL DIAGNOSIS RIGHT HEEL INCLUSION CYST: RUPTURED KERATIN INCLUSION CYST WITH FOREIGN BODY TYPE GRANULOMAS. CPT CODE: 91870 MACROSCOPIC Clinical history: None Specimen in formalin labeled "right heel inclusion cyst" consists of an ellipse of skin,2.6 cm long and 5 mm wide, with an underlying cyst filled with keratinous debris measuring1.2 cm in maximum dimension. There is hemorrhage surrounding this cyst. Representativesection s, one cassette. MICROSCOPIC SEE DIAGNOSIS Signed SIGNATURE ON FILE Reshma Sanz 02/25/20 1217 -------- END OF REPORT Novel Coronavirus 2019 [id number] 18:20:00* Test Item Value Reference Range Interpretation Comme nts Novel Coronavirus 2019 Inh se (test code = COVNONPUI) Negative Negative BASIC METABOLIC [id number] 13:04:00* Test Item Value Reference Range Interpretation Comme nts SODIUM (test code = NA) 135 mmol/l 134.0-147.0 N POTASSIUM (test code = K) 4.1 mmol/L 3.6-5.2 N CHLORIDE (test code = CL) 101 mmol/l 98.0-107.0 N CARBON DIOXIDE (test code = CO2) 23.0 mmol/l 21.0-33.0 N ANION GAP (test code = GAP) 15.1 0-20 N GLUCOSE (test code = GLU) 81 mg/dl 70.0-110.0 N BLOOD UREA NITROGEN (test co de = BUN) 13 mg/dl 7.0-18.0 N CREATININE (test code = CREAT) 1.24 mg/dL 0.60-1.30 N GFR NON BLACK (test code = GFRNONBLACK) 68 mL/min 95-105 L GFR BLACK (test code = GFRBLACK) 82 mL/min 115-127 L CALCIUM (test code = CA) 8.4 mg/dl 8.0-10.5 N CBC W/AUTO [id number] 12:57:00* Test Item Value Reference Range Interpretation Comme nts WHITE BLOOD CELL (test code = WBC) 4.3 K/mm3 4.5-11.0 L RED BLOOD CELL (test code = RBC) 6.07 M/mm3 4.40-5.90 H HEMOGLOBIN (test code = HGB) 16.9 gm/dL 13.0-17.0 N HEMATOCRIT (test code = HCT) 52.2 % 36.0-48.0 H MEAN CELL VOLUME (test code = MCV) 86.0 UM3 80.0-94.0 N MEAN CELL HGB (test code = MCH) 27.8 UUG 25.5-32.5 N MEAN CELL HGB CONCETRATION (test code = MCHC) 32.4 gm/dL 29.0-35.5 N RED CELL DISTRIBUTION WIDTH (test code = RDW) 16.3 % 11.5-15.0 H RED CELL DISTRIBUTION WIDTH SD (test code = RDW-SD) 49.3 fL 34.8-50.2 N PLATELET COUNT (test code = PLT) 276 K/mm3 150-400 N MEAN PLATELET VOLUME (test c ode = MPV) 9.9 fl 7.4-10.4 N NEUTROPHIL % (test code = NT%) 63.7 % 49.0-76.0 N IMMATURE GRANULOCYTE % (test code = IG%) 0.0 % 0.0-0.4 N LYMPHOCYTE % (test code = LY%) 22.8 % 23.0-38.0 L MONOCYTE % (test code = MO%) 10.7 % 1.0-10.0 H EOSINOPHIL % (test code = EO%) 2.1 % 1.0-5.0 N BASOPHIL % (test code = BA%) 0.7 % 0.0-1.0 N NEUTROPHIL # (test code = NT#) 2.7 K/mm3 2.4-6.3 N IMMATURE GRANULOCYTE # (test code = IG#) 0.00 x10 3/uL 0.00-0.07 N LYMPHOCYTE # (test code = LY#) 1.0 K/mm3 1.2-4.0 L MONOCYTE # (test code = MO#) 0.5 K/mm3 0.0-0.6 N EOSINOPHIL # (test code = EO#) 0.1 K/MM3 0.0-0.7 N BASOPHIL # (test code = BA#) 0.0 K/mm3 0.0-0.2 N - XR CHEST 2 [id number] 10:42:00FAX: Getachew Nicholas DPM [phone] [place]: St: PRE Name: WENDY LUEVANO [facility] : 1975 Age/S: 44/M [address] [facility] Unit #: [id number] Loc: [place], [place] Phys: Getachew Babin [address] Acct: [id number] Dis Date: Status: PRE SDC PHONE #: [phone] Exam Date: 02/19/2020 1028 FAX #: [phone] Reason: PREOP EXAMS: CPT CODE: [id number] XR CHEST 2 V 35331 Dictation location: U19. CHEST, FRONTAL AND LATERAL VIEWS HISTORY: PREOP COMPARISON: Chest x-ray 07/15/11 FINDINGS: The lungs are clear without consolidation. No pleural effusion or pneumothorax. The heart size is normal. The bones are unremarkable. IMPRESSION: No evidence of acute cardiopulmonary disease. at 1042 Reported and signed by: Aby Craft M.D. CC: Getachew Babin DPM Technologist: MORENO IVY Trnkingsrd Date/Time/By: 02/19/2020 (1042) : By: [email or web address] PAGE 1 Signed Report FAX: Getachew Nicholas DPM [phone] [place]: St: PRE -- Name: WENDY LUEVANO [facility] : 1975 Age/S: 44/M [address] [facility] Unit #: [id number] Loc: [place], [place] Phys: Getachew Babin [facility] [address] Acct: [id number] Dis Date: Status: PRE SDC PHONE #: [phone] Exam Date: 02/19/2020 1028 FAX #: [phone] Reason: PREOP EXAMS: CPT CODE: [id number] XR CHEST 2 V 31967 (Continued) Orig Print D/T: S: 02/19/2020 (1045) PAGE 2 Signed Report Notes Date/Time Note Provider Source 2020-02-22 09:26:00 [id number] [facility] [address] [place] [id number] PATIENT NAME: WENDY LUEVANO ADMIT DATE: 02/22/20 ACCOUNT NO: [id number] DISCHARGE DATE: 02/22/20 ROOM NO: REPORT TYPE: OPERATIVE REPORT DATE OF : [birth year] AGE: 44 SEX: M ADMITTING PHYSICIAN: ATTENDING PHYSICIAN:Getachew Babin [facility] OPERATION DATE: 02/22/2020 PREOPERATIVE DIAGNOSIS: Soft tissue mass, right heel. POSTOPERATIVE DIAGNOSIS: Inclusion cyst subcutaneous, right heel. PROCEDURE: Excision of soft tissue mass, right heel. ANESTHESIA: Via local 14 mL of 0.5% Marcaine plain. SURGEON: Getachew Babin MD HOTEL YARDPERSON: DESCRIPTION OF PROCEDURE: The patient was brought into the operating room, placed on the operating table in supine position. Once adequate IV sedation was obtained, the patient was injected with a total of 14 mL of 0.5% Marcaine plain. The patient was prepped and draped in the usual sterile manner and the right extremity was elevated to 60 degrees for a period of 3 minutes to exsanguinate the blood supply. Pneumatic ankle tourniquet was elevated to 250 mmHg. Attention was then directed to the lateral aspect of the right heel where a curvilinear incision was made through a skin fissure created by the soft tissue mass approximately 5 cm in length. Incision was deepened down into subcutaneous tissue utilizing sharp and blunt dissection. Neurologic structures were avoided. All bleeders were clamped and bovied. With a hemostat dissection, a soft tissue mass was identified with a walled-off fibrosis. Upon it from the skin in the dermal layer, the inclusion cyst was identified with a cheesy material. This was cultured, aerobic and anaerobic. The soft tissue mass was bluntly dissected and sharply dissected to remove in toto and sent for pathology, approximately 2 cm in diameter. The area was inspected. Any bleeders were bovied. The fatty tissue was not changed. Skin was thinned due to intrusion of the soft tissue mass in the dermal layer. However, the skin was intact. The area was flushed with copious amounts of sterile saline. Skin edges were recut to remove some of the callused tissue due to the fissure and then skin was reapproximated utilizing 3-0 nylon horizontal mattress suture to tyler the skin edges and bring the deeper layers closer together as opposed to the calloused edges. Pneumatic ankle tourniquet was deflated and capillary return was seen to be instantaneous to the area and to the digits. The area was dressed with Adaptic, dry sterile gauze, Kerlix, and an Nabil bandage. The patient will be followed in my office for postoperative care. Postop instructions were given in the written form as well as emergency phone number. The patient will be seen in 1 week. The patient understands to be nonweightbearing on the heel at all times including when in bed to keep it off PATIENT NAME: WENDY LUEVANO the mattress. The patient has crutches and a knee roller. Dictated By: Getachew Babin DPM WT: OP:KRAIG/JUDY/DIANNE Conf#: [id number]/DID#: [id number] Authenticated by Getachew Babin DPM On 02/27/2020 01:59:24 PM at 1359 PATIENT NAME: WENDY LUEVANO [facility] 2020-02-22 09:18:00 [facility] ([facility]) Brief Op Note REPORT#:[id number] REPORT STATUS: Signed DATE:02/22/20 TIME: 09 PATIENT: WENDY LUEVANO UNIT #: [id number] ROOM/BED: : 77 AGE: 44 SEX: M ATTEND: Getachew Babin DPM ADM AUTHOR: Getachew Babin DPM * ALL edits or amendments must be made on the electronic/computer document * Op/Inv Proc Note - Brief Pre-procedure diagnosis: cyst right heel Post-procedure diagnosis: same as pre procedure dx Procedures performed: Excision of STM right heel Primary Surgeon: cesar Plate Gauger(s): none Anesthesia: local anesthesia, 14cc marcaine plain Findings: Inclusion cyst right heel into skin dermis 2cm diameter Complications: none Estimated blood loss in ml's: 2cc Specimens removed/altered: inclusion cyst cultures taken at 0922 RPT #:[id number] END OF REPORT [facility] 2020-02-20 14:22:00 [id number] [place] [address] PATIENT NAME: WENDY LUEVANO ADMIT DATE: 02/22/20 ACCOUNT NO: [id number] DISCHARGE DATE: 02/22/20 ROOM NO: REPORT TYPE: HISTORY AND PHYSICAL DATE OF : [birth year] AGE: 44 SEX: M ADMITTING PHYSICIAN: ATTENDING PHYSICIAN:Getachew Babin DPM ADMISSION DATE: 02/22/2020 HISTORY OF PRESENT ILLNESS: This patient presented to my office with a chief complaint of a soft tissue mass present on the plantar lateral aspect of the heel of the right foot. The patient has had discomfort in this for years and cannot function at work due to the discomfort. Pain is sharp in nature, moderate in severity, and relieved with rest. PAST MEDICAL HISTORY: Unremarkable. CURRENT MEDICATIONS: None. ALLERGIES: NONE. SOCIAL HISTORY: Denies alcohol or IV drug use, or smoking. PAST SURGICAL HISTORY: Includes a vasectomy and left wrist fracture repair. FAMILY HISTORY: Unremarkable. PHYSICAL EXAMINATION: VITAL SIGNS: Weight is 225. GENERAL: The patient is healthy, well developed, well nourished, well oriented x3. VASCULAR: Evaluation reveals dorsalis pedis and posterior tibial pulses to be 2/4 bilaterally. Capillary refill time is less than 3 seconds. The foot assessment shows a rigid cavus foot type bilaterally. The subtalar joint is in normal position. There is forefoot supinatus bilaterally. There is a plantar flexed first metatarsal bilaterally. Digits are normal alignment. Muscle knee and ankle assessment are within normal limits, equal and symmetrical bilaterally. SKIN: There is a subcutaneous soft tissue mass present on the plantar lateral aspect of the right heel about 3 x 2 cm in size with callus area of the skin and a fissure present due to the enlargement of the mass. Skin Evaluation reveals no rash, ulcer, tumor, or contracture other than a fissure by the soft tissue mass on the right heel. IMAGING: X-ray evaluation reveals no fracture, tumor, or degenerative joint disease seen. Bones are in good alignment. MRI evaluation reveals a 2 cm complex cystic mass just deep to the skin surface posterior lateral heel. It is hypointense on T1 and hyperintense on T2 just deep to the skin. Fatty tissues are within normal limits and there is no change to the bone. PATIENT NAME: WENDY LUEVANO DIAGNOSIS: Soft tissue mass, right heel. PLAN: Recommended treatment is for excision of soft tissue mass. The patient understands the risks, benefits, and alternatives of the above-mentioned procedure including but not limited to risk of pain, swelling, numbness, stiffness, infection, nonhealing of skin or soft tissue and tenderness to the area due to its location and weightbearing position on the heel. The patient has had preoperative workup at [facility] and scheduled for surgery on 02/22/2020. Medical H and P will be completed by hospitalist. The patient requests surgical management due to lack of response to any conservative care and discomfort and normal function. Dictated By: Getachew Babin DPM WT: ABRAHAN:KRAIG/JUDY/DIANNE Conf#: [id number]/DID#: [id number] Authenticated and Edited by Getachew Babin DPM On 02/27/20 1:59:14 PM at 1402 PATIENT NAME: WENDY LUEVANO [facility] 2020-02-19 10:16:00 [place] [address] [place] [address] ELECTROCARDIOGRAM Patient: WENDY LUEVANO Unit #: [id number] Sex/Age: M 44 : [birth year] Admit Date: Location: [facility] Physician: Getachew Babin DPM Room/Bed: Order: [id number] Test Reason : PREOP Test Date/Time Stamp: TueFeb 19 2020 10:16:51 Blood Pressure : / mmHG Vent. Rate : 052 BPM Atrial Rate : 052 BPM P-R Int : 186 ms QRS Dur : 124 ms QT Int : 402 ms P-R-T Axes : 043 042 -12 degrees QTc Int : 373 ms Sinus bradycardia with sinus arrhythmia Nonspecific intraventricular conduction delay T wave abnormality, consider inferior ischemia Abnormal ECG When compared with ECG of 20-SEP-2011 04:11, Vent. rate has decreased BY 26 BPM QRS duration has increased Non-specific change in ST segment in Anterior leads Nonspecific T wave abnormality no longer evident in Anterior leads Confirmed by KHAI PERDOMO, AIDAN ([id number]) on 02/19/2020 12:16:44 PM Referred By: Getachew Babin Confirmed by:AIDAN PHILLIPS MD at 1217 dd/t: 02/19/20 1016 [facility]
--- NOTE | 2024-06-26 22:57 | RAD REPORT ---
EXAMINATION: UPPER EXTREMITY VENOUS UNILATE CLINICAL INDICATION: Male, 49 years old. [facility] MAIN SWELLING Bed Name: 7 TECHNIQUE: Complete venous duplex sonography of the right upper extremity was performed. The examinat ion included compression for vein patency, color Doppler imaging and flow augmentation in response to distal compression of the internal jugular, brachiocephalic, subclavian, axillary, brachial, radia l, ulnar, cephalic and basilic veins. COMPARISON: No prior exam. FINDINGS: Duplex sonography testing of the veins of the right upper extremity is completed. Color flow imaging shows all veins to be compressible with appropriate color filling. Pulsatile and phasic flow is present within the upper extremity deep and superficial veins examined. IMPRESSION: There is no deep vein or superficial vein thrombosis.
--- NOTE | 2024-06-26 23:24 | RAD REPORT ---
EXAMINATION: Upper Ext Artery Uni Donell CLINICAL INDICATION: Male, 49 years old. [facility] MAIN right arm SWELLING Bed Name: 7 TECHNIQUE: Arterial duplex ultrasound was performed of the Right upper extremity with real-time, colo r-flow, and spectral wave Doppler evaluation. COMPARISON: No prior exam. FINDINGS: No significant plaque throughout the evaluated arterial system. Triphasic waveforms are seen through out the evaluated Right upper extremity arterial system, to the level of the radial and ulnar arteries. No other suspicious findings. IMPRESSION: No evidence of significant peripheral vascular disease.
--- NOTE | 2024-06-26 23:29 | EDPHYS ---
Physician Documentation [facility] Name: Aric Luevano Age: 49 yrs Sex: Male : 1975 Arrival Date: 06/26/2024 Time: 21:16 Bed 7 Private MD: ED Physician Fidel Rodriguez HPI: 06/26 23:10 This 49 yrs old Unknown Male presents to ER via Ambulatory with complaints of CARDIAC kb CATH PROBLEM. 23:10 Patient is a 49-year-old male who had a heart cath through right wrist today. States kb heart cath was completely normal. Came in this evening for swelling to right hand. Denies any pain but states the swelling is getting any better. Called the truck trailer final inspector and was told to have it evaluated in the ER if it persisted. Cardiac cath site dressed with clean dressing. Historical: - Allergies: 21:38 No Known Allergies; bm8 - Home Meds: 21:38 hormone replacement therapy [Active]; hormone replacement therapy [Active]; bm8 testosterone [Active]; Lisinopril Oral [Active]; - PMHx: 21:38 hypogonadism; bm8 - PSHx: 21:38 heart cath (hypogonadism); bm8 - Immunization history:: Adult Immunizations up to date. - Infectious Disease History:: Denies. - Social history:: Smoking status: Patient denies any tobacco usage or history of. ROS: 23:08 Constitutional: As per HPI kb Exam: 23:08 Constitutional: This is a well developed, well nourished patient who is awake, alert, kb and in no acute distress. Head/Face: Normocephalic, atraumatic. ENT: Moist Mucous membranes Cardiovascular: Regular rate Respiratory: Respirations even and unlabored. No increased work of breathing. Talking in full sentences Skin: Warm, dry with normal turgor. Normal color. Neuro: Awake and alert, GCS 15, oriented to person, place, time, and situation. Moves all extremities. Normal gait. 23:08 Musculoskeletal/extremity: Extremities: grossly normal except: noted in the right hand: swelling, ROM: intact in all extremities, Circulation is intact in all extremities. Sensation intact. Vital Signs: 21:36 BP 133 / 77; Pulse 54; Resp 12; Temp 98.5; Pulse Ox 97% ; Weight 102.06 kg; Height 5 bm8 ft. 9 in. ; Pain 0/10; 22:27 BP 122 / 80; Pulse 50; Resp 14; Temp 98.5; Pulse Ox 100% ; Pain 0/10; bm8 23:33 BP 132 / 86; Pulse 55; Resp 16; Temp 98.3; Pulse Ox 97% ; dd2 21:36 Body Mass Index 33.23 (102.06 kg, 175.26 cm) bm8 21:36 Pain Scale: Adult bm8 22:27 Pain Scale: Adult bm8 Silvia Coma Score: 21:41 Eye Response: spontaneous(4). Motor Response: obeys commands(6). Verbal Response: bm8 oriented(5). Total: 15. 22:27 Eye Response: spontaneous(4). Motor Response: obeys commands(6). Verbal Response: bm8 oriented(5). Total: 15. MDM: 21:37 Patient medically screened. kb 23:09 Differential diagnosis: postop bleeding, infection, dvt. Data reviewed: vital signs, kb nurses notes. Historians other than the Patient: Spouse/Significant Other: . Counseling: I had a detailed discussion with the patient and/or guardian regarding the historical points, exam findings, and any diagnostic results supporting the discharge/admit diagnosis, radiology results, the need for outpatient follow up, a family practitioner, to return to the emergency department if symptoms worsen or persist or if there are any questions or concerns that arise at home. 06/26 21:52 Order name: UPPER EXTREMITY VENOUS UNILATE; Complete Time: 22:58 EDMS 06/26 21:53 Order name: Upper Ext Artery Uni Donell; Complete Time: 23:27 EDMS Administered Medications: No medications were administered Disposition: 06/27 22:31 Co-signature as Attending Physician, Fidel Rodriguez MD I agree with the assessment sp4 and plan of care. I reviewed the patient's care provided by the Advanced Practice Provider and agree with the diagnosis and treatment plan. Disposition Summary: 06/26/24 23:29 Discharge Ordered Notes: Location: Home kb Condition: Stable kb Diagnosis - Edema, unspecified kb Followup: kb - With: Emergency Department - When: As needed - Reason: Worsening of condition Followup: kb - With: Private Physician - When: 2 - 3 days - Reason: Recheck today's complaints, Continuance of care, Re-evaluation by your physician Discharge Instructions: - Discharge Summary Sheet kb - Edema, [id number] kb Forms: - Medication Reconciliation Form kb - Antibiotic Education kb - Prescription Opioid Use kb - Patient Portal Instructions kb - Leadership Thank You Letter kb Signatures: Dispatcher [employer] EDMS Aide Vasquez, Fidel De La Cruz MD MD sp4 Tommy Hill RN RN bm8 Corrections: (The following items were deleted from the chart) 06/26 21:52 21:48 Extremity Venous Uni Ltd+[email or web address].RAD.[email or web address] ordered. EDMS EDMS 21:52 21:48 Lower Extremity Artery Uni Ltd+US.RAD.BRZ ordered. EDMS EDMS
--- NOTE | 2024-06-26 23:29 | ER ---
Nurse's Notes [facility] Name: Aric Luevano Age: 49 yrs Sex: Male : 1975 Arrival Date: 06/26/2024 Time: 21:16 Bed 7 Private MD: Diagnosis: Edema, unspecified Presentation: 06/26 21:36 Chief complaint: Patient states: I had a heart cath done today. now my right hand where bm8 they went is starting to swell. Coronavirus screen: At this time, the client does not indicate any symptoms associated with coronavirus-19. Ebola Screen: Patient negative for fever greater than or equal to 101.5 degrees Fahrenheit, and additional compatible Ebola Virus Disease symptoms Patient denies exposure to infectious person. Patient denies travel to an Ebola-affected area in the 21 days before illness onset. No symptoms or risks identified at this time. Initial Sepsis Screen: Does the patient meet any 2 criteria? No. Patient's initial sepsis screen is negative. Does the patient have a suspected source of infection? No. Patient's initial sepsis screen is negative. Risk Assessment: Do you want to hurt yourself or someone else? Patient reports no desire to harm self or others. Onset of symptoms was June 26, 2024 at 14:30. 21:36 Method Of Arrival: Ambulatory bm8 21:36 Acuity: TRIN[place] 3 bm8 Triage Assessment: 21:38 General: Appears in no apparent distress. comfortable, Behavior is calm, cooperative, bm8 appropriate for age. Pain: Denies pain. EENT: No deficits noted. No signs and/or symptoms were reported regarding the EENT system. Neuro: No deficits noted. Level of Consciousness is awake, alert, obeys commands, Oriented to person, place, time, situation, Appropriate for age. Cardiovascular: Denies chest pain, lightheadedness, shortness of breath, Heart tones S1 S2 present Capillary refill < 3 seconds Patient's skin is warm and dry. Rhythm is sinus bradycardia. Respiratory: Airway is patent Respiratory effort is even, unlabored, Respiratory pattern is regular, symmetrical, Breath sounds are clear bilaterally. GI: No signs and/or symptoms were reported involving the gastrointestinal system. : No signs and/or symptoms were reported regarding the genitourinary system. Derm: No signs and/or symptoms reported regarding the dermatologic system. Musculoskeletal: Circulation, motion, and sensation intact. Capillary refill < 3 seconds, in bilateral fingers. Swelling present in right wrist Reports swelling to right wrist. Historical: - Allergies: 21:38 No Known Allergies; bm8 - Home Meds: 21:38 hormone replacement therapy [Active]; hormone replacement therapy [Active]; bm8 testosterone [Active]; Lisinopril Oral [Active]; - PMHx: 21:38 hypogonadism; bm8 - PSHx: 21:38 heart cath (hypogonadism); bm8 - Immunization history:: Adult Immunizations up to date. - Infectious Disease History:: Denies. - Social history:: Smoking status: Patient denies any tobacco usage or history of. Screenin:41 [facility] ED Fall Risk Assessment (Adult) History of falling in the last 3 months, bm8 including since admission No falls in past 3 months (0 pts) Confusion or Disorientation No (0 pts) Intoxicated or Sedated No (0 pts) Impaired Gait No (0 pts) Mobility Assist Device Used No (0 pt) Altered Elimination No (0 pt) Score/Fall Risk Level 0 - 2 = Low Risk Oriented to surroundings, Maintained a safe environment, Educated pt \T\ family on fall prevention, incl call for assistance when getting out of bed, Assessed \T\ reinforced patient's understanding of fall precautions, Hourly rounding (assess needs \T\ fall precautionary measures) done, Used ambulatory aids as needed (educated on \T\ assisted with), Used gait belt as appropriate. Abuse screen: Denies threats or abuse. Nutritional screening: No deficits noted. Tuberculosis screening: No symptoms or risk factors identified. Assessment: 22:27 Reassessment: Patient appears in no apparent distress at this time. No changes from bm8 previously documented assessment. Patient and/or family updated on plan of care and expected duration. Pain level reassessed. Patient is alert, oriented x 3, equal unlabored respirations, skin warm/dry/pink. Patient denies pain at this time. Vital Signs: 21:36 BP 133 / 77; Pulse 54; Resp 12; Temp 98.5; Pulse Ox 97% ; Weight 102.06 kg; Height 5 bm8 ft. 9 in. ; Pain 0/10; 22:27 BP 122 / 80; Pulse 50; Resp 14; Temp 98.5; Pulse Ox 100% ; Pain 0/10; bm8 23:33 BP 132 / 86; Pulse 55; Resp 16; Temp 98.3; Pulse Ox 97% ; dd2 21:36 Body Mass Index 33.23 (102.06 kg, 175.26 cm) bm8 21:36 Pain Scale: Adult bm8 22:27 Pain Scale: Adult bm8 Silvia Coma Score: 21:41 Eye Response: spontaneous(4). Motor Response: obeys commands(6). Verbal Response: bm8 oriented(5). Total: 15. 22:27 Eye Response: spontaneous(4). Motor Response: obeys commands(6). Verbal Response: bm8 oriented(5). Total: 15. ED Course: 21:19 Patient arrived in ED. [id number] 21:36 Tommy Hill, RN is Primary Nurse. bm8 21:37 Aide Vasquez FNP-C is [facility]. kb 21:37 Fidel Rodriguez MD is Attending Physician. kb 21:38 Triage completed. bm8 21:38 Arm band placed on. bm8 21:41 Patient has correct armband on for positive identification. Bed in low position. Call bm8 light in reach. Side rails up X 1. Adult w/ patient. Client placed on continuous cardiac and pulse oximetry monitoring. NIBP monitoring applied. vehicle monitor technician on. Pulse ox on. NIBP on. Door closed. Noise minimized. Warm blanket given. Pillow given. Verbal reassurance given. Head of bed elevated. 21:41 No provider procedures requiring assistance completed. Patient maintains SpO2 bm8 saturation greater than 95% on room air. 22:21 UPPER EXTREMITY VENOUS UNILATE In Process Unspecified. EDMS 22:22 Upper Ext Artery Uni Donell In Process Unspecified. EDMS 23:38 Patient did not have IV access during this emergency room visit. dd2 23:39 Provided Education on: d/c education. dd2 Administered Medications: No medications were administered Medication: 21:41 VIS not applicable for this client. bm8 Outcome: 23:29 Discharge ordered by . kb 23:38 Discharged to home ambulatory, dd2 23:38 Condition: stable 23:38 Discharge instructions given to patient, Instructed on discharge instructions, follow up and referral plans. Demonstrated understanding of instructions, follow-up care, 23:39 Patient left the ED. dd2 Signatures: Dispatcher [employer] Aide Garcia, PEDIATRIC NEPHROLOGIST-C PEDIATRIC NEPHROLOGIST-CkAmanda Flood [id number] Tommy Hill, RN RN bm8 JOSE LISA RN RN dd2
[2024-06-26 23:48] VITALS: BP 132/86; TEMP 98.3; O2SAT 97
== END 2024-06-26 23:39 | disposition home or self-care (01) ==
LOC: ER 21:16
DX: R60.9 Edema, unspecified (principal); Z98.61 Coronary angioplasty status
CPT/HCPCS: 93931; 93971; 99284